=== PATIENT | male | born 1945 | race Caucasian/White ===

== ENCOUNTER → 2019-03-29 11:14 | Outpatient (CLI) | payer MEDICARE, BC, SELFPAY ==
--- NOTE | 2019-03-29 11:36 | DI.CT.S_ITS ---
PROCEDURE: CT UE LT WO CON COMPARISON: None. INDICATIONS: OSTEOARTHRITIS. LEFT SHOULDER PAIN WITH DECREASED RANGE OF MOTION FINDINGS: No acute fracture identified. There is severe glenohumeral joint degeneration with [id number] appearance, subchondral sclerosis and spurring. There are prominent bulky osteophytes. Innumerable loose bodies and/or heterotopic ossification noted. There is also high riding appearance of the humeral head suggesting chronic rotator cuff pathology. Joint effusion is seen. IMPRESSION: Preoperative planning examination demonstrating severe left shoulder joint degeneration as above. Dictated by: Osiel Guillaume M.D. on 03/29/2019 at 12:39 Approved by: Osiel Guillaume M.D. on 03/29/2019 at 12:42
== END ==
PROVIDERS: Visit Provider Orthopaedic Surgery
DX: M19.012 Primary osteoarthritis, left shoulder (principal)
CPT/HCPCS: 73200

== ENCOUNTER 2019-06-24 09:50 | Inpatient (IN) | payer MEDICARE, BC, SELFPAY ==
[2019-05-14 08:48] VITALS: BMI 30.2
[2019-06-24] VITALS (18 sets, daily range): BP systolic 97–151; BP diastolic 48–75; PULSE 71–90; RESP 12–20; TEMP 36.1–36.6; O2SAT 94–99; BMI 30.5
--- NOTE | 2019-06-24 11:02 | DI.RAD.S_ITS ---
PROCEDURE: XR SHOULDER LT 1V INDICATIONS: POST OPERATIVE TOTAL LEFT SHOULDER TECHNIQUE: 1 views of the shoulder were acquired. COMPARISON: CT left shoulder 03/29/2019. FINDINGS: Post left shoulder arthroplasty. No dislocation. No fracture. Expected postsurgical change in the soft tissues. Mild degenerative change at the acromioclavicular joint appreciated. IMPRESSION: Satisfactory appearance of the left shoulder arthroplasty. Dictated by: Glenn Dowling M.D. on 06/24/2019 at 17:04 Approved by: Glenn Dowling M.D. on 06/24/2019 at 17:06
[2019-06-24] MEDS: ACETAMINOPHEN 325 MG TABLET 975 MG PO ×2 (11:23→21:45)
[2019-06-24] MEDS: PREGABALIN 75 MG CAPSULE PO (11:23)
[2019-06-24] MEDS: CELECOXIB 200 MG CAPSULE PO (11:23)
[2019-06-24] MEDS: LACTATED RINGERS 1,000 ML 42 ML IV ×2 (11:51→15:45)
--- NOTE | 2019-06-24 12:44 | PM.PREOP ---
Pre-operative Note Interval Note History & Physical reviewed/Exam performed by Physician: Yes Changes to H&P: No
[2019-06-24] MEDS: MIDAZOLAM 2 MG/2 ML VIAL IV (13:43)
[2019-06-24] MEDS: fentaNYL 100 MCG/2 ML INJ 50 MCG IV (13:43)
--- NOTE | 2019-06-24 13:44 | SUR.PREOP ---
Block start time [1329 ] . Monitoring initiated and maintained throughout procedure. Oxygen and medications given per anesthesiologist instructions. Patient remained stable throughout procedure, no adverse reactions noted. Block end time [[address] Cruz. No adverse reaction, tolerated well.
[2019-06-24] MEDS: CEFAZOLIN 2 GM/100 ML FROZ.PIGGY IV (13:50)
[2019-06-24] MEDS: TRANEXAMIC ACID 1,000 MG VIAL 1000 MG INJ ×2 (14:09→15:38)
--- NOTE | 2019-06-24 14:30 | SUR.OPER ---
Beach chair with Schlein shoulder positioner. Lower body on padded OR bed. Head in foam padded head cradle, secured with straps. Non-operative arm secured <90 degrees abduction. Pillow under knees. Safety belt at thigh. Cloth tape over blanket over lower legs.
[2019-06-24] MEDS: BUPIVACAINE 0.5% W/ EPI (PF) VIAL 30 ML INJ (14:38)
[2019-06-24] MEDS: THROMBIN (RECOMBINANT) 5,000 UNIT VIAL 5000 UNIT TOP (14:40)
--- NOTE | 2019-06-24 16:15 | P.OP_ITS ---
Operative Date/Time/Diagnoses Date of procedure: 06/24/19 Time of procedure: 16:00 Pre-op diagnosis: 1. Left shoulder osteoarthritis 2. Multiple left shoulder loose bodies Post-op diagnosis: same Procedure & Clinicians Procedure: 1. Left total shoulder replacement 2. Removal of loose bodies, left shoulder Same procedure as scheduled: Yes Indications: The patient has had progressively worsening left shoulder pain with radiographic changes consistent with arthritis. Non-operative management has failed and the patient has requested total shoulder replacement. The risks, benefits and alternatives to surgery were discussed with the patient prior to proceeding. Risks discussed included, but were not limited to, failure to relieve pain, stiffness, infection, nerve damage, deep venous thrombosis, pulmonary embolism, stroke, coma, heart attack, permanent paralysis and , as well as the potential need for eventual revision of the prosthetic. Surgeon: Lane Arriaga Job Specification Writer: Linda Reddy Click Yes if Unassisted: No Anesthesia Type: General, Peripheral nerve block and Local Operative Notes Findings: Severe left shoulder osteoarthritis with a very large inferior osteophyte on the humerus and multiple loose bodies. Closure Type: primary Specimen(s): none sent Prosthetic devices, grafts, tissues, transplants, or devices: Implants used in this procedure were manufactured by the [employer] and included an Altivate short stem total shoulder system with a size 14 humeral stem with a neutral neck and a 50 mm x 20 mm offset humeral head. In addition there was a 50 mm pegged all polyethylene E plus glenoid. Applied: implant(s) Estimated Blood Loss (mL): 150 Blood products transfused: none Procedure in detail: The patient was seen in the pre-operative area, where the patient identified the left shoulder as the operative site and this was marked with my initials. The patient received pre-operative antibiotics, underwent an interscalene block, and was taken to the operating room and placed on the operative table in the supine position. After satisfactory anesthesia, a full ?time out? was performed. The patient was repositioned in the ?beach chair? position using a dedicated positioner. All pressure points were well padded, and the knees were slightly bent to prevent tension on the sciatic nerves. The left arm was prepared from the fingers to the base of the neck with ChloroPrep in the usual fashion and draped through sterile drapes. An approximately 15 cm incision was created, starting at the clavicle above the coracoid process and extended towards the deltoid insertion. The deltopectoral interval was used to access the shoulder. The cephalic vein was taken medially. A self retaining retractor was placed. The upper centimeter of the pectoralis major tendon was released. The ?three sisters? were identified and cauterized. The axillary nerve was palpated and protected throughout the case. The biceps was released from its groove and tenodesed over the top of the pectoralis major tendon. The subscapularis was released from the lesser tuberosity with a subscapularis peel and tagged for later repair. Upon entering the biceps tendon sheath there were several loose bodies encountered. Additional loose bodies were encountered at intervals throughout the case with movement of the humerus and release of the subscapularis. They were removed as they appeared. The shoulder was dislocated and a cutting guide was used for the proximal humeral osteotomy in 30 degrees of retroversion. A starter Reamer was used followed by the cylindrical reamers. This continued in larger sizes in till cortical bite was achieved. Sequential broaching was then performed until a line to line fit with the Reamer occurred. A proximal humeral protector was then placed. We then removed the self-retaining retractor and placed retractors to access the glenoid. The subscapularis was released with a ?360 degree release? with care being taken to protect the axillary nerve with the inferior portion of this procedure. The remnant of labrum and biceps stump were removed. The appropriate size reamer was chosen with the glenoid sizer, and the guide pin placed. The glenoid was appropriately reamed. The guide for the peripheral holes was used and the center hole enlarged. The trial glenoid was placed with good stability. We then cemented the final implant into place after irrigating the peg holes and drying them with thrombin-soaked Gelfoam. We returned our attention to the humerus, a trial humeral head was applied and a trial reduction performed. Stability was checked with 50% posterior translation, 40? external rotation at the side and 70? of internal rotation in the scarecrow position. This was felt to be satisfactory and the appropriate implants were opened. Five holes were drilled along the humeral osteotomy and #2 Ethibond sutures placed for eventual subscapularis repair. The humeral prosthetic was impacted into the humerus. The humeral head was applied when the stem was still slightly proud and impacted to both seat the head and fully seat the stem. The joint was relocated one final time. The joint was irrigated and the subscapularis repaired to the previously placed sutures using Abraham-Shalom sutures. The top of the subscapularis was closed to the leading edge of the supraspinatus with a figure of 8 #2 Ethibond to close the rotator interval. A deep drain was placed and brought out supero-laterally. The deltopectoral interval was closed with interrupted 0 Vicryl. The subcut aneous layer was closed with 3-0 Vicryl, and the skin with a running 3-0 V-Lock suture and SteriStrips. An Aquacel Ag dressing was applied, the patient?s arm was placed in a sling, and the patient was taken to recovery having tolerated the procedure well. Complications: none Post-operative Condition: stable Disposition: PACU Plan for aftercare: The patient will be maintained on a standard total shoulder replacement protocol with passive range of motion limited to 90 degrees forward flexion, 0 degrees external rotation at the side, 0 degrees abduction and internal rotation to the body. The patient will receive aspirin and sequential compression devices for DVT prophylaxis. The patient will be discharged home when safe for the home environment, likely tomorrow.
[2019-06-24] MEDS: LACTATED RINGERS 1,000 ML 125 ML IV (19:00)
[2019-06-24] MEDS: ASPIRIN EC 81 MG TABLET PO (21:45)
[2019-06-24] MEDS: DOCUSATE 100 MG CAPSULE PO (21:45)
[2019-06-24] MEDS: ROSUVASTATIN 10 MG TABLET 40 MG PO (21:45)
[2019-06-24] MEDS: AMLODIPINE 5 MG TABLET PO (22:51)
[2019-06-25 00:28] VITALS: BP 113/59; PULSE 95; RESP 16; TEMP 36.4; O2SAT 97
[2019-06-25] MEDS: LACTATED RINGERS 1,000 ML 125 ML IV (02:28)
[2019-06-25 05:07] VITALS: BP 130/65; PULSE 86; RESP 16; TEMP 36.6; O2SAT 95
[2019-06-25 05:49] LABS: Hemoglobin 13.3 g/dL (13.5-17.5); Mean Corpuscular Hemoglobin 32.6 PG (26-34); Mean Corpuscular Volume 93.2 fL (80-100); Platelet Count 197 X10^3/uL (150-400); Red Blood Cell Count 4.08 X10^6/uL (4.5-5.9); Red Cell Distribution Width 12.6 % (11.6-14.8); White Blood Cell Count 13.8 X10^3/uL (4.5-11.0)
--- NOTE | 2019-06-25 06:18 | PC.NURSE ---
Commercial Title Examiner Note: 0000: Pt resting in bed. He denies pain at this time. Vital signs stable. IV in place in rt arm, with LR infusing at 125cc/hr. Lt shoulder dressing cdi, with hemovac intact and compressed. Lt arm remains in sling.
[2019-06-25 07:30] VITALS: BP 134/79; PULSE 82; RESP 16; TEMP 36.4; O2SAT 96
--- NOTE | 2019-06-25 07:56 | PM.DS.1 ---
History of Present Illness History of Present Illness Date Patient Seen: 06/25/19 Time Patient Seen: 07:56 Chief complaint: [id number] LT TSA Narrative: The history and physical are contained in the chart and a previously completed note. Please refer to that note for this information. Discharge Providers Provider Date of admission: 06/24/19 09:50 Discharge Date: 06/25/19 Primary care physician: Tiffanie Hernandez MD Consults: 06/24/19 18:20 Consult to Discharge Planning Routine Comment: Consult to Physical Therapy Evaluate & Treat Comment: pendulums, PROM 90 FF, 0 ER, 0 abd, IR to body Physician Instructions: Evaluate and Treat Discharge provider: Lane Arriaga MD Summary Hospital Course Discharge Diagnosis: 1. Left shoulder osteoarthritis 2. Left shoulder loose bodies 3. Mild post hemorrhagic anemia Hospital Course: The patient was admitted to the hospital and taken directly to the operating room on June 24, 2019. He underwent a left total shoulder replacement and removal of loose bodies without complications. On postoperative day 1 he was stable and ready for discharge home. Status at Discharge Cognitive/behavioral status at discharge: oriented Functional status at discharge: independent ambulation Overall status at discharge: patient is progressing back to baseline Time Spent with Patient Time spent: Less than 30 minutes Exam Vital Signs (past 8 hours): - 06/25/19 00:28 06/25/19 05:07 Temperature 97.6 F 97.9 F Pulse Rate 95 H 86 Respiratory Rate 16 16 Blood Pressure 113/59 L 130/65 Pulse Oximetry 97 95 Oxygen Delivery Method Room Air Narrative Exam Narrative: Left shoulder wound is dressed. He has intact light touch in the axillary, muscular cutaneous, radial, ulnar and median nerve distribution. He can extend his thumb, abduct his thumb, abduct his fingers, and can fire his biceps and deltoid. Objective Labs Result Diagrams: 06/25/19 05:00 Labs: Laboratory Results - last 24 hr 06/25/19 05:00 WBC 13.8 H RBC 4.08 L Hgb 13.3 L Hct 38.0 L MCV 93.2 MCH 32.6 MCHC 35.0 RDW 12.6 Plt Count 197 Discharge Plan Discharge Plan Patient Disposition: Home Discharge Med Rec/Prescriptions Prescriptions: New acetaminophen 325 mg Tablet 975 mg PO TID 30 Days Qty: 270 RF: 0 aspirin 81 mg Tablet,Delayed Release (Dr/Ec) 81 mg PO BID 42 Days Qty: 84 RF: 0 oxycodone 5 mg Tablet 5 mg PO Q4HR Qty: 40 RF: 0 Continued chlorthalidone 25 mg Tablet 25 mg PO DAILY RF: 0 amlodipine 5 mg Tablet 5 mg PO QAM RF: 0 ranitidine HCl 300 mg Capsule 300 mg PO QAM RF: 0 losartan 100 mg Tablet 100 mg PO DAILY RF: 0 rosuvastatin 40 mg Tablet 40 mg PO QPM RF: 0 cholecalciferol (vitamin D3) [Vitamin D3] 2,000 unit Capsule 2,000 unit PO DAILY RF: 0 naproxen sodium [Aleve] 220 mg Capsule 220 mg PO DAILY PRN (Reason: Pain) RF: 0 PreserVision AREDS-2 [id number] Capsule 1 tab PO BID RF: 0 Discontinued aspirin 81 mg Tablet,Delayed Release (Dr/Ec) 81 mg PO DAILY RF: 0 Follow up/Referrals: Tiffanie Hernandez MD [Primary Care Provider] - Lane Arriaga MD [Physician] - 2 Weeks Provider Discharge Instructions Diet: Diet as Tolerated and Regular Activity: You may use your left hand in front of your body below shoulder level. Lift no more than 1 lb with the left hand. Cold/Heat Therapy: Apply ice to the left shoulder for 15 minutes every hour as needed for pain control. Other treatments: Continue to wear the sling. Skin/Wound/Dressing Care Report to your healthcare provider any signs of infection, such as:: chills, fever, night sweats, increased pain, unusual drainage and unusual redness Dressing: You may shower with the dressing in place. If the central strip of the dressing becomes saturated with either water or blood please call the office to have it changed. Visit Report/Discharge Packet Instructions: DI for Shoulder Replacement Stand Alone Forms: Surgery Discharge Discharge Data Primary Care Provider: Tiffanie Hernandez
[2019-06-25] MEDS: ACETAMINOPHEN 325 MG TABLET 975 MG PO ×2 (08:24→14:42)
[2019-06-25] MEDS: ASPIRIN EC 81 MG TABLET PO (08:26)
[2019-06-25] MEDS: DOCUSATE 100 MG CAPSULE PO (08:26)
[2019-06-25 08:30] VITALS: BP 145/79; PULSE 89
[2019-06-25] MEDS: LOSARTAN 50 MG TABLET 100 MG PO (08:30)
[2019-06-25] MEDS: CHLORTHALIDONE 25 MG TABLET PO (08:34)
--- NOTE | 2019-06-25 09:23 | PT.IIE ---
Current Diagnoses Primary osteoarthritis, left shoulder (06/24/19) Surgery Performed Operation Date: 06/24/19 13:15 Actual Procedures p Total Shoulder Arthroplasty(Left) - Lane Arriaga MD Surgical History (Last Updated 05/14/19 @ 09:18 by Joyce Gerber RN) Hx of appendectomy (Acute ~1983) Hx of tonsillectomy (Acute) S/P insertion of iliac artery stent (Acute ~2010) Medical History (Last Updated 05/14/19 @ 12:31 by Joyce Gerber RN) Aortoiliac obstruction (Acute ~2010) Enlarged prostate (Acute) GERD (gastroesophageal reflux disease) (Acute) Hearing impaired (Acute) HLD (hyperlipidemia) (Acute) HTN (hypertension) (Acute) Macular degeneration of both eyes (Acute) TAMAR on CPAP (Acute) Osteoarthritis (Acute) Physical Therapy Inpatient Evaluation/Re-Eval M1 PT/OT-IP Prior Functional Status Start: 06/25/19 12:11 Freq: NEEDED Status: Active Protocol: Document 06/25/19 09:23 AB (Rec: 06/25/19 12:31 AB [id number]) Medical Review Prior Functional Status Medical History Reviewed Yes Communication able to make needs known Mobility and Gait pt stated that he is independent with all mobilities and ambulation without AD Social History Household Members spouse Living Arrangements House Number of Floors (Floors) One Floor Number of Stairs To Enter/Railing? 7 steps with L rail ascending to enter Home Environment Standard Height Toilet,Walk in Shower,Built-In Shower Seat Home Equipment Hand Held Shower,Grab Bars In Shower Additional Social History Comment pt stated that he worked part- time in a [employer] but will not be returning back M2 PT-IP Current Condition Start: 06/25/19 12:11 Freq: NEEDED Status: Active Protocol: Document 06/25/19 09:23 AB (Rec: 06/25/19 12:31 AB [id number]) Physical Therapy Current Condition Current Condition Evaluation Date 06/25/19 Treatment Diagnosis s/p L TSA; difficulty in walking Onset Date 06/24/19 Precautions Shoulder Precautions Sling,PROM,Internal Rotation to Body,No External Rotation, No Abduction,Forward Flexion to 90 degrees,Pendulums Weight Bearing Status Weight Bearing Status Non-Weight Bearing Allowed Weight Bearing Amount (enter % NWB LUE or #) (%) M3 PT-IP Subjective Start: 06/25/19 12:11 Freq: NEEDED Status: Active Protocol: Document 06/25/19 09:23 AB (Rec: 06/25/19 12:31 AB [id number]) Subjective Physical Therapy Visit Type Type Initial Evaluation Visit Start Time 09:23 Visit Stop Time 12:00 Total Visit Minutes 57 Notes pt seen for split visits: 923 am to 1001 am and 1141 am to 12nn. Number of DEPARTMENT OF MATHEMATICS CHAIR Visits 0 Physical Therapy Visit Comments Patient Comments pt agreeable to do PT Therapy Pain Assessment Pain Present Pain Present Denied Pain M4 PT-IP Mobility and Gait Start: 06/25/19 12:11 Freq: NEEDED Status: Active Protocol: Document 06/25/19 09:23 AB (Rec: 06/25/19 12:31 AB [id number]) PT-Bed Mobility Assessment Supine to Sit Supine to Sit Standby Assistance Sit to Supine Sit to Supine Standby Assistance PT-Transfer Assessment Sit to and From Stand Sit to and from Stand Contact Guard Assistance,1 Person Assistance Equipment Transfer Assistive Device None,Gait Belt Orthotic/Prosthetic Devices or Brace: Yes Comments Mobility Comments P tseen 923 to 1001. BP in supine: 133/64. pt completed supine to sit SBA. pt was able to sit on EOB SBA. initiated sling management. pt completed elbow/hand exercises. Spouse present. pt c/o dizziness and stated that he has to lay back and completed sit to stupine SBA. BP checked: 114/61. pt rested and agreed to sit back up. BP checked in sittin /52. pt stated that he feels faint and lay back down. BP: 98/57. positioned pt in bed. BP checked in supine: 136/77. elevated HOB up for comfort and BP checked again: 134/71. nurse aware. call light and table placed within reach. Checked back on pt: 1141 to 12nn. pt supine in bed with HOB elevated. BP: 149/73. pt completed supine to sit. BP in sittin/84. pt completed sit to stand CGA. BP: 128/74 . pt c/o nausea but stated that he wants to stay standing and possibly using the toilet. BP checked gain: 126/67. pt c/o not feeling well and has to lay back down. pt took ~ 2 steps sideways to get closer to HOB CGA. BP checked in supine 140/75. Nurse in room with pt . positioned pt in bed. left pt with nurse Gait Assessment Gait Gait Assistance Required: Contact Guard Assist Distance (Feet) 1 Able to Maintain Weight Bearing Status Yes During Gait Assistive Devices Assistive Device None,Gait Belt Factors Limiting Gait Function Factors Limiting Gait Function Decreased Activity Tolerance, Limited Range of Motion,Poor Balance Comments Gait Comments pt was able to take ~ 2 steps towards HOB without AD CGA. M5 PT-IP Objective Assessments Start: 06/25/19 12:11 Freq: NEEDED Status: Active Protocol: Document 06/25/19 09:23 AB (Rec: 06/25/19 12:31 AB [id number]) Orientation Orientation/Cognition Level of Alertness Alert Orientation Name Language Function Ability No Deficits Noted,Hard of Hearing Safety Awareness Decreased Safety Awareness Memory Description No Deficits Noted Gross Range of Motion Lower Extremity ROM Assessment Within Functional Limits Strength Lower Extremity Strength Assessment Within Functional Limits Sensation Assessment Sensation Gross Sensation WNL Muscle Tone Muscle Tone WNL Yes M6 PT-IP Treatment Start: 06/25/19 12:11 Freq: NEEDED Status: Active Protocol: Document 06/25/19 09:23 AB (Rec: 06/25/19 12:31 AB [id number]) Physical Therapy Treatment Education Education Provided Precautions,Weight Bearing Status,Post-Op Packet,Safety Other Treatments Other Treatment Performed initiated LUE exercises and educated on pendulum activity but pt unable to tolerate much upright activity and did not complete. also initiated pt/ caregiver training for sling management and pt unable to tolerate much activity and unable to complete. M7 PT-IP Assessment and Plan Start: 06/25/19 12:11 Freq: NEEDED Status: Active Protocol: Document 06/25/19 09:23 AB (Rec: 06/25/19 12:31 AB [id number]) PT Summary Assessment and Plan Potential Rehabilitation Potential Good Status of Condition at Evaluation Evolving Summary Impairments Pain,ROM,Strength,Balance, Coordination,Sensation,Tone, Cognition,Bed Mobility, Transfers,Gait,Activity Tolerance Assessment Summary pt unable to tolerate much activity with c/o nausea/ feeling faint with decrease in BP with upright position. unable to assess much ambulation and stair climbing due to decrease activity tolerance. will need further assessment to determine safe d /c plan. Goals Bed Mobility Goal Independent Transfer Goal Independent Gait Goal Independent Gait Distance 250 Other Goals uup/down 7 steps with L rail ascending Days to Meet Goals 5 Frequency of Treatment Frequency Of Treatment Twice a Day Treatment Plan Physical Therapy Treatment Plan Bed Mobility Training,Transfer Training,Gait Training, Therapeutic Exercise,Balance Retraining,Post Op Education, Discharge Planning,Hot or Cold Pack,Neuromuscular Re-ed, Coordination Retraining,Manual Therapy Recommendations To Nursing Amount of Assist Needed 1 Person Assist Discharge Recommendations PT Discharge Recommendations Home with Assistance, Outpatient PT
[2019-06-25 11:20] VITALS: BP 145/84; PULSE 76; RESP 16; TEMP 36.5; O2SAT 97
--- NOTE | 2019-06-25 13:57 | CM.DANOTE ---
Discharge Planning/Care Management DCP: assessment: case received, EMR reviewed, d/c order to home setting noted today at 0730. Met now with pt and his Kaye. Introduced self and role. Pt is a 73 year old male who admitted yesterday to care of Surgeon: Dr. Arriaga for a planned L TSA. Payer: Medicare and [facility] Admission status: INPT: confirmed by UR RN Osmar. PT did see pt with recommendation of home settiing and OUTPT PT. Pt notes that he has been a bit woozy when up with PT and wonders if he is ready for d/c. NAWAF Zaldivar says she has been watching pt, has not yet notified Dr. Arriaga of same. Kaye says she has been part of the caregiver training process today and that they are expecting to work with OT this afternoon. P: either home later today or tomorrow. DCP team to check in tomorrow if pt is still here and follow prn. Pre-Anesthesia Assessment Start: 05/14/19 08:48 Freq: Status: Complete Protocol: Document 05/14/19 08:48 [facility] (Rec: 05/14/19 09:33 [facility] [id number]) Pre-Anesthesia Assessment Patient Information Reviewed Via Phone Assessment Assessment Completed With Patient Diagnostic Results BMP/CMP,CBC,EKG,Urinalysis Comment Outside labs/EKG scanned to record Primary Care Provider Tiffanie Hernandez Seen Specialist in Last 12 Months Yes Specialist Seen Orthopedist,Other Comment Vascular surgeon note 11/08/18 scanned to record Primary Language Setswana Automation Developer Required No Height 175.26 cm Weight 92.986 kg Body Mass Index (BMI) 30.2 Hearing Ability Hard of Hearing,Use of Hearing Aid Visual Assist Glasses Dentition Type Teeth, Natural Present Barriers to Learning Auditory Other Aids Yes: CPAP Hx Anesthesia Reactions No Hx Family Anesthesia Reaction No Hx Malignant Hyperthermia No Hx Blood Transfusions No Anesthesia Review Requested No alcohol intake current alcohol intake frequency a few times a week Smoking Status Never smoker Substance Use Type does not use Pain Present Pain Reported Musculoskeletal Symptoms Joint Pain,Limited Range of Motion,Radiating Pain into Limb History of Falling (Recent or History of No ) Patient is completely paralyzed or No completely immobile Mental Status Oriented to own ability Is patient on oxygen? No Does patient have CARTER/SOB No Hx Sleep Apnea Yes CPAP/BIPAP use prescribed and used routinely Will Bring CPAP/BIPAP DOS Yes Currently Taking a Beta Santos No Can You Climb a Flight of Stairs Without Yes SOB Hx Chest Pain No Hx SOB No Hx Syncope or Dizziness No Anti-Coagulant Therapy Yes: Aspirin for iliac stents x 2 Has a Audio Visual Facilities Engineer No: Vascular surgeon yearly for stents Cardiac Testing Yes: BLE extremity Duplex 11/08 Hx Pacemaker/ICD No Pacemaker Rep Required? No Cardiac Clearance Received Yes Comment Walks 3-4x/week, up hills without difficulty, cardiac clearance scanned in Diet Type At Home Regular dysphagia No Bladder Pattern Nocturia Urinary Catheter Present No Hx Urinary Self Catheterization No Diabetes No HgbA1C 5.7 Date 04/19/19 Hx Drug Resistant Organism No Presence of External or Internal Medical Yes: Iliac stents x 2, CPAP Devices Have you traveled outside the [facility] in the last 30 days? Marital Status Lives With spouse Prior Living Arrangements House Number of Floors (Floors) One Floor Support System Spouse Does the Patient Have Assistance After Yes Surgery Patient Discharge Plan Description Return Home Comment Pt advised 1-2 night length of stay per surgeon Feels Safe in Current Environment Yes Been Physically Hurt or Threatened By a No Person in Current Environment Do you have thoughts of harming yourself None or others? Are you currently considering suicide? No Do you have a plan to hurt yourself or No Plan others? Do You Have Any Spiritual Beliefs That No May Affect Your HC Choices? Do You Have Any Cultural Practices That No May Affect Your HC Choices? Who Can We Speak to About Patient's Care Friends, family Identifying Code for Release of Patient Declines to issue Information Health Care Proxy/Next of Kin Kaye () Cathleen (daughter ) Health Care Proxy Phone Number Kaye: [phone] Cathleen: [phone] Emergency Contact Name Kaye () Cathleen (daughter ) Emergency Contact Phone Number Kaye: [phone] Cathleen: [phone] Advance Directives? Yes Advance Directives on File No Requested Patient Bring Advanced Yes Directives DOS Power of Snow Groomer Yes Power of Snow Groomer Phone Number Cathleen (daughter) Comment [phone] PAC Instructions Bring CPAP/BIPAP,Durable medical equipment,Medications to take/avoid,Nasal antibiotic ,No ETOH/petroleum product on skin DOS,NPO,Post-op transportation,Pre-surgical wash,Sensory aids,Sturdy shoes /comfortable clothes,Do not bring valuables and remove jewelry
--- NOTE | 2019-06-25 15:14 | PT.IPTN ---
This is to certify that I have reviewed this documentation and is involved with this pt's care. Current Diagnoses Primary osteoarthritis, left shoulder (06/24/19) Surgery Performed Operation Date: 06/24/19 13:15 Actual Procedures p Total Shoulder Arthroplasty(Left) - Lane Arriaga MD Physical Therapy Treatment Note M2 PT-IP Current Condition Start: 06/25/19 12:11 Freq: NEEDED Status: Discharge Protocol: Document 06/25/19 09:23 AB (Rec: 06/25/19 12:31 AB [id number]) Physical Therapy Current Condition Current Condition Evaluation Date 06/25/19 Treatment Diagnosis s/p L TSA; difficulty in walking Onset Date 06/24/19 Precautions Shoulder Precautions Sling,PROM,Internal Rotation to Body,No External Rotation, No Abduction,Forward Flexion to 90 degrees,Pendulums Weight Bearing Status Weight Bearing Status Non-Weight Bearing Allowed Weight Bearing Amount (enter % NWB LUE or #) (%) M3 PT-IP Subjective Start: 06/25/19 12:11 Freq: NEEDED Status: Discharge Protocol: Document 06/25/19 15:14 JG (Rec: 06/25/19 17:50 JG [email or web address]) Subjective Physical Therapy Visit Type Type Treatment Note Visit Start Time 15:14 Visit Stop Time 15:37 Total Visit Minutes 23 Notes Tx led by LELAND Power, supervised by PT Renuka Number of DIALYSIS SOCIAL WORKER Visits 0 Physical Therapy Visit Comments Patient Comments I feel much better than I did this morning. I think it was because I had not eaten. Patient Goals Return home Therapy Pain Assessment Pain When Pain Assessed During Mobility Pain Present Pain Present Denied Pain M4 PT-IP Mobility and Gait Start: 06/25/19 12:11 Freq: NEEDED Status: Discharge Protocol: Document 06/25/19 15:14 JG (Rec: 06/25/19 17:50 JG [email or web address]) PT-Transfer Assessment Sit to and From Stand Sit to and from Stand Standby Assistance,Use of Upper Extremities Equipment Transfer Assistive Device None,Gait Belt Orthotic/Prosthetic Devices or Brace: No Transfers Transfer Destination Chair Transfer Technique ambulated Transfer Ability Level of Assist Standby Assistance,Use of Upper Extremities Comments Mobility Comments Pt up in chair upon assessment . Pt baseline BP 138/79 and pt denied dizziness, lightheadedness, or nausea. Pt able to sit to and from stand with SBA and use of R UE on armrest. Pt then attempted to perform pendulums with R UE support on counter and CGA for safety. Initiated caregiver training for sling maintenance . After ambulation and stair training pt left in chair with call light and needs within reach. BP after mobility 148/ 67. Gait Assessment Gait Gait Assistance Required: Standby Assistance Distance (Feet) 400 Able to Maintain Weight Bearing Status Yes During Gait Assistive Devices Assistive Device None,Gait Belt Orthotic/Prosthetic Devices or Brace: No Gait Deviations General Gait Pattern Decreased Stride Length, Decreased Feet Clearance, Lateral Trunk Lean,Narrow Based Gait Comments Gait Comments Pt able to ambulate ~400 ft to the stairs and back to his room. Pt ambulates with increased lateral weight shift and decreased foot clearance, but reports this is his baseline gait pattern. Pt naturally walks at a fast pace and required cuing to slow down for safety. Pt denied any dizziness or nausea during ambulation. Stair Climbing Assessment Evaluation Level of Assist On Stairs Standby Assistance Devices Stair Climbing Assistive Devices Left Railing Technique/Endurance Stair Climbing Direction Ascend and Descend Stair Climbing Technique Step to Step Number of Steps Climbed 3 Stair Climbing Set # Repetitions (reps) 2 Comments Stair Climbing Comments Educated pt on ascending stairs sideways step to step so that he could use R hand to support himself on L railing. Pt able to ascend with this pattern 2 times with SBA and demonstrated good control and balance. Pt initially descended with step over step pattern and use of L railing support. Educated pt to descend using step to step pattern and slow down for improved safety. Pt descended stairs using this pattern during second round and demonstrated improved control and safety. PT-Balance Assessment Sitting Balance and Reactions Static Sitting Balance Ability Good Dynamic Sitting Balance Ability Good Standing Balance and Reactions Static Standing Balance Ability Good Dynamic Standing Balance Ability Fair Device Used without AD M5 PT-IP Objective Assessments Start: 06/25/19 12:11 Freq: NEEDED Status: Discharge Protocol: Document 06/25/19 09:23 AB (Rec: 06/25/19 12:31 AB [id number]) Orientation Orientation/Cognition Level of Alertness Alert Orientation Name Language Function Ability No Deficits Noted,Hard of Hearing Safety Awareness Decreased Safety Awareness Memory Description No Deficits Noted Gross Range of Motion Lower Extremity ROM Assessment Within Functional Limits Strength Lower Extremity Strength Assessment Within Functional Limits Sensation Assessment Sensation Gross Sensation WNL Muscle Tone Muscle Tone WNL Yes M6 PT-IP Treatment Start: 06/25/19 12:11 Freq: NEEDED Status: Discharge Protocol: Document 06/25/19 15:14 JG (Rec: 06/25/19 17:50 JG [email or web address]) Physical Therapy Treatment Education Education Provided Precautions,Safety Brace Education Donning,[place],Patient, Caregiver Other Treatments Other Treatment Performed Demonstrated pendulum exercise for pt and educated pt on importance of passive movement of shoulder through weight shift during this exercise. Pt demonstrated high levels of guarding which improved slightly with cuing to relax L UE completely. Pt unable to perform pendulums d/t high levels of guarding, so PT discussed letting arm hang passively at home in pendulum position. Performed caregiver training for sling donning and doffing. Caregiver able to adjust sling with minimal cues . Pt cont to require cuing to relax L UE so that movements are passive during sling donning/doffing. Educated pt on strategies to ascend/ descend stairs safely. M7 PT-IP Assessment and Plan Start: 06/25/19 12:11 Freq: NEEDED Status: Discharge Protocol: Document 06/25/19 15:14 JG (Rec: 06/25/19 17:50 JG [email or web address]) PT Summary Assessment and Plan Potential Rehabilitation Potential Good Status of Condition at Evaluation Stable Summary Impairments Pain,ROM,Strength,Balance, Coordination,Sensation,Bed Mobility,Transfers,Gait, Activity Tolerance Progress Towards Goals Progressing Toward Goals Assessment Summary Pt demonstrated improved activity tolerance during tx with stable BP and denied nausea or dizziness. Pt required no more than SBA for functional mobility, ambulation, and stair climbing . Pt cont to require cues to relax L UE and limit shoulder movements to passive only. Pt safe to d/c to home with assist from spouse once medically cleared. Goals Bed Mobility Goal Independent Transfer Goal Independent Gait Goal Independent Gait Distance 250 Other Goals up/down 7 steps with L rail ascending SBA Days to Meet Goals 5 Frequency of Treatment Frequency Of Treatment Twice a Day Treatment Plan Physical Therapy Treatment Plan Bed Mobility Training,Transfer Training,Gait Training, Therapeutic Exercise,Balance Retraining,Post Op Education, Discharge Planning,Hot or Cold Pack,Neuromuscular Re-ed, Coordination Retraining,Manual Therapy Recommendations To Nursing Amount of Assist Needed Standby Assistance Discharge Recommendations PT Discharge Recommendations Home with Assistance, Outpatient PT
--- NOTE | 2019-06-25 16:17 | PC.NURSE ---
Radha reinoso note: Discharge instructions given to patient and spouse after afternoon session with PT Renuka. CMS intact to LLE, discussed importance of F/U with Dr. CARLISLE in 2 weeks, dressing home care instructions, and new medication Rx. Patient and spouse verbalized understanding of instructions. Ambulating in room independently, home via private vehicle with spouse and son.
== END 2019-06-25 16:00 | disposition home or self-care (01) | DRG 483 ==
PROVIDERS: Admitting Provider Orthopaedic Surgery; PCP Family Medicine; Visit Provider Orthopaedic Surgery
PROC: 0RRK0JZ Replacement of Left Shoulder Joint with Synthetic Substitute, Open Approach (ICD-10-PCS; CPT 23472; principal; 2019-06-24 13:15)
DX: M19.012 Primary osteoarthritis, left shoulder (principal); G47.33 Obstructive sleep apnea (adult) (pediatric); I10 Essential (primary) hypertension; K21.9 Gastro-esophageal reflux disease without esophagitis; M24.012 Loose body in left shoulder
CPT/HCPCS: 36415; 64450; 73020; 85027; 94762; 97116; 97162; 97530; C1776; J0690; J1100; J2250; J2405; J2704; J3010